=== PATIENT | female | born 2000 | race Caucasian/White ===

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

== ENCOUNTER 2019-08-03 07:26 | Inpatient (IN) ==
[2019-08-03] MEDS ORDERED: CeFAZolin Syr 2,000MG/20 ML 2,000 MG/20 ML SYRINGE IVPB ONE (07:47)
[2019-08-03] MEDS ORDERED: Ringers Solution, Lactated 1,000 ML IVC SCH (08:00)
[2019-08-03] MEDS ORDERED: *HR* HYDROmorphone PF 0.5 MG/0.5 ML SYRINGE IVP PRN (08:38)
[2019-08-03] MEDS ORDERED: Ondansetron 4 MG/2 ML VIAL IVP ONE (08:38)
[2019-08-03] MEDS ORDERED: *HR* OxyCODONE Immed Rel 5 MG TABLET PO PRN (08:38)
[2019-08-03] MEDS ORDERED: *HR* Rocuronium Bromide 50 MG/5 ML VIAL ONE (08:55)
[2019-08-03] MEDS ORDERED: Ondansetron 4 MG/2 ML VIAL ONE (08:55)
[2019-08-03] MEDS ORDERED: *HR* FentaNYL (PF) 100 MCG/2 ML VIAL ONE ×2 (08:55→09:27)
[2019-08-03] MEDS ORDERED: Dexamethasone 4 MG/ML VIAL ONE (08:55)
[2019-08-03] MEDS ORDERED: *HR* Midazolam HCl 2 MG/2 ML VIAL ONE (08:55)
[2019-08-03] MEDS ORDERED: Lidocaine -MPF 2% 2 ML VIAL ONE (08:55)
[2019-08-03] MEDS ORDERED: *HR* Propofol 200 MG/20 ML VIAL IVP ONE (08:55)
[2019-08-03] MEDS ORDERED: Bupivacaine/EPI 1:200k 0.25%PF 10 ML VIAL INFILT ONE (09:04)
[2019-08-03] MEDS ORDERED: Ferric Subsulfate 8 ML TOPICAL TP ONE (09:05)
[2019-08-03] MEDS ORDERED: Acetaminophen IV 1,000 MG/100 ML INFUS..BTL ONE (09:11)
[2019-08-03] MEDS ORDERED: *HR* PHENYLEPHRINE 1,000 MCG/10 ML SYRINGE IVP ONE (09:59)
[2019-08-03] MEDS ORDERED: Neostigmine Methylsulfate 3 MG/3 ML SYRINGE ONE (10:28)
[2019-08-03] MEDS ORDERED: Naloxone 0.4 MG/ML INJ IVP PRN (12:11)
[2019-08-03] MEDS: *HR* HYDROmorphone 20 MG/20 ML PCA IVC PRN (12:47)
[2019-08-03 15:06] LABS: Hemoglobin 10.1 g/dL (11.5-15.4)
[2019-08-03 15:08] LABS: Hematocrit 30.6 % (35.3-44.9); Mean Corpuscular Hemoglobin 29.4 pg (28.0-33.3); Mean Corpuscular Volume 89.2 fL (83.0-100.0); Platelet Count 376 K/mcL (140-400); Red Blood Count 3.43 M/mcL (3.82-4.97); Red Cell Distribution Width 13.4 % (11.5-14.5); White Blood Count 27.8 K/mcL (4.3-11.1)
[2019-08-03 15:51] LABS: Monocytes # 1.1 K/mcL (0.0-1.3); Neutrophils # 26.7 K/mcL (1.6-8.9); Platelet Estimate Normal (Normal)
[2019-08-03] MEDS: Ringers Solution, Lactated 1,000 ML IVC SCH (17:31)
[2019-08-04] MEDS: Ringers Solution, Lactated 1,000 ML IVC SCH ×2 (00:45→07:57)
[2019-08-04] MEDS: *HR* OxyCODONE/APAP 5/325 TABLET PO PRN ×2 (05:42→12:33)
[2019-08-04 07:44] LABS: VBG Base Excess -8 mEq/L; VBG Chloride 104 mEq/L (98-107); VBG Glucose 147 mg/dl (65-95); VBG HCO3 18 mEq/L (21-27); VBG Ionized Calcium 1.21 mmol/L (1.15-1.35); VBG Oxygen Saturation 79 %; VBG PCO2 36 mmHg (41-51); VBG PH 7.31 pH Units (7.32-7.42); VBG PO2 47 mmHg (25-50); VBG Total CO2 19 mEq/L
[2019-08-04 07:54] VITALS: BP 95/59
[2019-08-04] MEDS: *HR* HYDROmorphone 20 MG/20 ML PCA IVC PRN (13:48)
== END 2019-08-04 13:30 | disposition home or self-care (01) ==
LOC: 1NENUOBS 07:26 → SAMDAY 07:26

== ENCOUNTER → 2020-06-11 07:29 | Observation (INO) ==
[2020-06-11 05:35] LABS: Bacteria,Urine Few per hpf (None-Few); Bilirubin,Urine Negative (Negative); Blood,Urine Negative (Negative); Clarity,Urine Turbid (Clear); Color,Urine Colorless (Yellow); Glucose,Urine (UA) Normal (Normal); Ketones,Urine Trace mg/dL (Negative); Leukocyte Esterase,Urine Small (Negative); Mucus,Urine Few per lpf (None-Few); Nitrite,Urine Negative (Negative); PH,Urine 6.5 pH Units (5.0-8.0); Protein,Urine Negative (Neg-Trace); RBC,Urine 0-3 per hpf (0-3); Specific Gravity,Urine 1.005 (1.010-1.025); Squamous Epithelial Cell,Urine Moderate per hpf (None-Few); Urobilinogen,Urine Normal (Normal)
[~2020-06-11 07:29] MED LIST: 0.9 % Sodium Chloride 500 ML IVC ONE; 0.9 % Sodium Chloride 500 ML ONE; Terbutaline 1 MG/ML VIAL SQ ONE
== END | disposition home or self-care (01) ==
LOC: 1NENULAB
PROVIDERS: ADMIT Obstetrics & Gynecology; ATTEND Obstetrics & Gynecology

== ENCOUNTER → 2020-07-26 17:55 | Observation (INO) ==
[2020-07-26 17:03] VITALS: BP 105/67
== END | disposition home or self-care (01) ==
LOC: 1NENULAB
PROVIDERS: ADMIT Registered Nurse; ATTEND Registered Nurse

== ENCOUNTER 2020-08-01 05:33 | Inpatient (IN) ==
[2020-08-01] MEDS ORDERED: Famotidine 20 MG/2 ML VIAL IVP PRN (06:05)
[2020-08-01] MEDS ORDERED: Naloxone 0.4 MG/ML INJ IVP PRN (06:05)
[2020-08-01] MEDS ORDERED: Metoclopramide 10 MG/2 ML VIAL IVP PRN ×2 (06:05→11:34)
[2020-08-01] MEDS ORDERED: Ringers Solution, Lactated 1,000 ML IVC SCH (06:15)
[2020-08-01] MEDS ORDERED: CeFAZolin 2,000 MG/50 ML BAG IVPB ONE (07:30)
[2020-08-01] MEDS ORDERED: Ondansetron 4 MG/2 ML VIAL ONE (07:33)
[2020-08-01] MEDS ORDERED: *HR* Morphine Sulfate/PF 10 MG/10 ML AMPUL ONE (07:33)
[2020-08-01] MEDS ORDERED: *HR* FentaNYL (PF) 100 MCG/2 ML VIAL ONE (07:33)
[2020-08-01] MEDS ORDERED: Dexamethasone 4 MG/ML VIAL ONE (07:33)
[2020-08-01] MEDS ORDERED: *HR* Midazolam HCl 2 MG/2 ML VIAL ONE (07:33)
[2020-08-01] MEDS ORDERED: EPINEPHrine 1 MG/ML VIAL ONE (07:35)
[2020-08-01] MEDS ORDERED: Ketorolac 30 MG/ML VIAL ONE (07:35)
[2020-08-01] MEDS ORDERED: Ringers Solution, Lactated 1,000 ML ONE (07:36)
[2020-08-01 07:41] LABS: Basophils % 0.4 %; Eosinophils % 0.2 %; Hematocrit 35.2 % (35.3-44.9); Hemoglobin 10.7 g/dL (11.5-15.4); Immature Granulocytes % 0.6 % (0-4); Lymphocytes # 2.4 K/mcL (0.6-4.6); Lymphocytes % 26.4 %; Mean Corpuscular HGB Conc 30.4 g/dL (31.6-35.5); Mean Corpuscular Hemoglobin 22.4 pg (28.0-33.3); Mean Corpuscular Volume 73.6 fL (83.0-100.0); Mean Platelet Volume 11.9 fL (9.4-12.4); Monocytes # 0.6 K/mcL (0.0-1.3); Monocytes % 5.9 %; Neutrophils # 6.1 K/mcL (1.6-8.9); Platelet Count 285 K/mcL (140-400); Red Blood Count 4.78 M/mcL (3.82-4.97); Red Cell Distribution Width 21.8 % (11.5-14.5); Segmented Neutrophils % 66.5 %; White Blood Count 9.3 K/mcL (4.3-11.1)
[2020-08-01] MEDS ORDERED: EPHEDrine 50 MG/ML VIAL ONE (07:42)
[2020-08-01] MEDS ORDERED: *HR* OxyCODONE/APAP 5/325 TABLET PO PRN ×2 (07:42→11:34)
[2020-08-01] MEDS ORDERED: Ibuprofen 400 MG TABLET PO PRN (07:42)
[2020-08-01] MEDS ORDERED: Ondansetron 4 MG/2 ML VIAL IVP PRN ×2 (07:42→11:34)
[2020-08-01 07:46] LABS: Amphetamine Screen,Urine Negative ng/mL (Cutoff=1000); Barbiturate Screen,Urine Negative ng/mL (Cutoff=200); Benzodiazepines Screen,Urine Negative ng/mL (Cutoff=200); Cannabinoid Screen,Urine Negative ng/mL (Cutoff = 50); Cocaine Screen,Urine Negative ng/mL (Cutoff= 300); Opiate Screen,Urine Negative ng/mL (Cutoff=300); Phencyclidine Screen,Urine Negative ng/mL (Cutoff=25)
[2020-08-01] MEDS ORDERED: *HR* Oxytocin 10 UNIT/ML VIAL IM ONE ×2 (08:20→08:32)
[2020-08-01] MEDS ORDERED: Oxytocin 20 units/ LR 1000 mL 20 UNIT/1,000 ML BAG IVC ONE (09:13)
[2020-08-01] MEDS ORDERED: 0.9 % Sodium Chloride 1,000 ML IVC SCH (11:34)
[2020-08-01] MEDS ORDERED: *HR* OxyCODONE/APAP 10/325 TABLET PO PRN (11:34)
[2020-08-01] MEDS ORDERED: Oxytocin 20 units/ LR 1000 mL 20 UNIT/1,000 ML BAG IVC SCH ×2 (11:34)
[2020-08-01] MEDS ORDERED: Sennosides 8.6 MG TABLET PO PRN (11:34)
[2020-08-01] MEDS ORDERED: Ibuprofen 600 MG TABLET PO PRN (11:34)
[2020-08-01] MEDS ORDERED: Simethicone 80 MG TAB.CHEW PO PRN (11:34)
[2020-08-01] MEDS: cephALEXin 500 MG CAPSULE PO SCH ×2 (15:00→20:58)
[2020-08-01] MEDS: metroNIDAZOLE 500 MG TABLET PO SCH ×2 (15:00→20:58)
[2020-08-02 05:11] LABS: Basophils % 0.2 %; Eosinophils % 0.1 %; Mean Corpuscular Hemoglobin 21.9 pg (28.0-33.3)
[2020-08-02 05:12] LABS: Hematocrit 30.4 % (35.3-44.9); Hemoglobin 9.1 g/dL (11.5-15.4); Immature Granulocytes % 0.5 % (0-4); Immature Platelets 13.3 % (1.1-6.1); Lymphocytes # 2.8 K/mcL (0.6-4.6); Lymphocytes % 16.4 %; Mean Corpuscular HGB Conc 29.9 g/dL (31.6-35.5); Mean Corpuscular Volume 73.1 fL (83.0-100.0); Monocytes # 1.3 K/mcL (0.0-1.3); Monocytes % 7.6 %; Neutrophils # 12.7 K/mcL (1.6-8.9); Platelet Count 259 K/mcL (140-400); Red Blood Count 4.16 M/mcL (3.82-4.97); Red Cell Distribution Width 21.4 % (11.5-14.5); Segmented Neutrophils % 75.2 %; White Blood Count 16.9 K/mcL (4.3-11.1)
[2020-08-02 07:59] VITALS: BP 100/64
[2020-08-02] MEDS: metroNIDAZOLE 500 MG TABLET PO SCH (08:51)
[2020-08-02] MEDS: cephALEXin 500 MG CAPSULE PO SCH (08:51)
[2020-08-02] MEDS ORDERED: Prenatal Vit/FA 1 EACH TABLET PO SCH (09:00)
== END 2020-08-02 10:53 | disposition home or self-care (01) | DRG 540 ==
LOC: 1NENULAB 05:33 → 1NENUOBS 11:17
PROVIDERS: ADMIT Obstetrics & Gynecology; ATTEND Obstetrics & Gynecology